=== PATIENT | male | born 1965 | race Caucasian/White ===

== ENCOUNTER → 2017-04-06 | Outpatient (CLI) | payer BC ==
[~2017-04-06] MED LIST: ASPIR 8181 M1 PO; ATORVASTATIN CA40 MG PO; CARISOPRODOL 3350 MG PO; CELEXA20 MG PO; CYMBALTA60 MG PO; ENDOCET 10-3251 EACH PO; HYTRIN 5 M5 MG/1 CAP PO; LISINOPRIL20 MG PO; VIAGRA100 MG PO
== END ==
LOC: CAT 15:08
DX: K11.8 Other diseases of salivary glands (principal)

== ENCOUNTER → 2019-03-20 | Outpatient (CLI) | payer BC ==
[~2019-03-20] VITALS: Ht 175.3 cm; Wt 158.8 kg
[~2019-03-20] MED LIST changes: +FINASTERIDE5 MG PO; +LISINOPRIL-HCT1 EAC1 PO; +METFORMIN HCL500 MG PO; +TERAZOSIN HCL10 MG PO
[2019-03-20 08:47] LABS: HEMATOCRIT 36.6 % (42.0-52.0); MCH 27.2 pg (26.0-34.0); MCHC 32.7 g/dL (28.0-37.0); MCV 83.2 fL (80.0-100.0); RBC 4.4 mil/uL (4.50-6.00); RDW 14.1 % (10.5-14.5); WBC 7.2 thou/uL (4.0-11.0)
[2019-03-20 08:55] LABS: CALCIUM 8.7 mg/dL (8.5-10.1); POTASSIUM 3.9 mmol/L (3.5-5.1)
[2019-03-20 09:14] VITALS: BP 118/69
--- NOTE | 2019-03-20 18:32 | CATHLAB ---
[facility] [address] [employer] [place] [address] INVASIVE PROCEDURE REPORT Name: RADHA RAMON Room #: REG CL Bibi#: [id number] ������������� Admission: 03/20/19 ������������� Attend Phys: Teofilo Arellano MD Discharge: ��� ������������� ��� Date of : 65 Date of Service: 03/20/19 183 �� Report #: [id number] �������� ��������������������������������������������[id number] THIS REPORT FOR: //name// APPROVED REPORT Study performed: 03/20/2019 10:43:15 Patient Details The patient is a 53 year-old male Event Personnel Teofilo Arellano Psych Arnp, Alesha Plummer RN, Ginny Maciel RTR, Prosper Polanco Valisa Monitor Procedures Performed LHC/ Cors/ LV Indication Dyspnea, Positive stress test, Chest pain Risk Factors Obesity, Hypercholesterolemia, Hypertension, Diabetes Procedure Narrative The Right Wrist^ was infiltrated with 1% Lidocaine subcutaneous anesthesia. A TRANSRADIAL SLENDER 6F GLIDESHEATH KIT #[id number] sheath was inserted into the RIGHT RADIAL ARTERY^. Coronary angiography was performed using coronary diagnostic catheters. The right coronary system was accessed and visualized with a 5FR JR 4 #[id number] catheter. The left coronary system was accessed and visualized with a 5FR JL 3.5 #[id number] catheter. The left ventricle was accessed and visualized with a 4F PIGTAIL catheter. Left ventriculogram was performed in AQUION projection. Closure device was deployed with a Fr . The patient tolerated the procedure well and there were no complications associated with the procedure. There was no hematoma. Intraoperative Conscious Sedation Sedation start time: 1048 Case end Time: 1130 Fentanyl 50 mcg Versed 1 mg Contrast Type and Amount: Omnipaque 85 ml Coronary Angiography The patient's coronary anatomy is right dominant. [address] [address] [place] [address] INVASIVE PROCEDURE REPORT Name: RADHA RAMON Room #: REG [facility]#: [id number] ������������� Admission: 03/20/19 ������������� Attend Phys: Teofilo Arellano MD Discharge: ��� ������������� ��� Date of : 65 Date of Service: 03/20/19 1831 �� Report #: [id number] �������� ��������������������������������������������[id number] Diagnostic Cath Left Main This is a large caliber vessel, patent with no flow-limiting lesions. LAD The LAD is a moderate size caliber vessel, traversing the anterior wall and wrapping around the apex. This vessel is patent with mild plaquing in the midsegment, 10%. Diagonal 1 This is a patent vessel, with no flow-limiting lesions. Circumflex This is a moderate size caliber vessel, patent with no flow-limiting lesions. OM1 This is a moderate size caliber vessel, patent with no flow-limiting lesions. Right Coronary This is a dominant vessel, patent with no flow-limiting lesions. R PDA This is a patent vessel, with no flow-limiting lesions. RPLV This is a patent vessel, with no flow-limiting lesions. Left Ventriculography The left ventricle is normal in size with normal contractility. The left ventricular ejection fraction is estimated to be 55-60%. Hemodynamics The aortic pressure is 127/88 mmHg with a mean of 106 mmHg. The left ventricular pressure is 144/5 mmHg with a mean of mmHg. The left ventricular end diastolic pressure is 19 mmHg. Conclusion 1. Essentially angiographically normal coronary arteries, with minimal plaquing in the mid LAD. 2. Normal LV systolic function. 3. Recommend aggressive risk factor management. ��������������������������������������������� <ELECTRONICALLY SIGNED> ���������������������������������������� By: Teofilo Arellano MD ��������������������������������������������� 03/20/191830 30 30 Teofilo Arellano MD /INF
--- NOTE | 2019-03-21 08:08 | EKG ---
[address] [address] [place] [address] ELECTROCARDIOGRAM REPORT Name: TRISTENRADHA Room #: REG CLCiera Mtz#: [id number] ������������������ Admission: 03/20/19 ������������������ Attend Phys: Teofilo Arellano MD Discharge: ������������������ Date of : 65 Report #: [id number] ����������������������������������������������������������������� [id number] THIS REPORT FOR: //name// [facility] Test Date: 2019-03-20 Test Time: 09:05:59 Pat Name: RADHA RAMON Department: Room: Gender: Lead Fire Protection Engineer: Alexa MORAN : 1965 Requested By: Teofilo Arellano Order Number: [id number] MD: Benitez Garrison Measurements Intervals [place] Rate: 81 P: 52 W[place]: 162 QRS: 65 QRSD: 78 T: 40 QT: 361 QTc: 419 Interpretive Statements Sinus rhythm Abnormal R-wave progression, early transition Compared to ECG 06/28/2015 08:51:34 No significant changes Electronically Signed On 03-21-2019 8:07:57 CDT by Benitez Garrison [email or web address] ��������������������������������������������� <ELECTRONICALLY SIGNED> ���������������������������������������� By: Benitez Garrison MD, [facility] ��������������������������������������������� 03/21/19 0807 4 4 Benitez Garrison MD, FACC /EPI
== END | disposition home or self-care (01) ==
LOC: CATH 07:25
PROVIDERS: Internal Medicine Cardiovascular Disease
DX: I25.10 Atherosclerotic heart disease of native coronary artery without angina pectoris (principal); I10 Essential (primary) hypertension; E78.00 Pure hypercholesterolemia, unspecified; E66.09 Other obesity due to excess calories; E11.9 Type 2 diabetes mellitus without complications; F32.9 Major depressive disorder, single episode, unspecified; M19.90 Unspecified osteoarthritis, unspecified site; N40.0 Benign prostatic hyperplasia without lower urinary tract symptoms; Z98.84 Bariatric surgery status; Z79.899 Other long term (current) drug therapy; Z98.890 Other specified postprocedural states; Z96.652 Presence of left artificial knee joint; Z79.4 Long term (current) use of insulin; Z79.82 Long term (current) use of aspirin

== ENCOUNTER → 2019-09-28 | Outpatient (CLI) | payer BC | LOC: RAD 15:26 | DX: J98.11 Atelectasis (principal) ==